=== PATIENT | female | born 1980 | race Caucasian/White ===

== ENCOUNTER 2016-11-18 20:25 | Emergency (ER) | payer OTHER ==
[2016-11-18] MEDS ORDERED: IMODIUM 2 MG PO ONE (21:05)
[2016-11-18] MEDS ORDERED: Zofran 4 MG/2 ML VIAL IV ONE (21:05)
[2016-11-18] MEDS ORDERED: Sodium Chloride 0.9% 1000 ML 1,000 ML IV STA (21:05)
--- NOTE | 2016-11-18 21:09 | ERPHSYRPT ---
- History of Present Illness Time Seen by Provider: 11/18/16 21:06 Historian: patient Exam Limitations: no limitations Patient Subjective Stated Complaint: PT STATES SHE STARTED HAVING VOMITING AND DIARRHEA 3 DAYS AGO. STATES DIARRHEA HAS IMPROVED TODAY BUT CONTINUES TO HAVE NAUSEA AND VOMITING. Triage Nursing Assessment: PT ALERT AND ORIENTED. ANSWERS QUESTIONS APPROP. PT AMBULATORY WITH STEADY GAIT NOTED. RESPIRATIONS NONLABORED WITH LUNGS CTA. ABD OBESE AND NONTENDER TO TOUCH. BOWEL SOUNDS DISTANT. Physician History: 36 y/o obese female comes to the ER with complaints of abdominal cramping, nausea, vomiting and diarrhea for the past 3 days. Pt mentions that the diarrhea has let up but now the vomiting is persistent, having emesis after trying to eat. Pt is unable to keep anything down. Pt denies any fever, chills, bloody stools, urinary symptoms or constipation. Timing/Duration: day(s) Activities at Onset: none Quality: cramping Abdominal Pain Onset Location: generalized abdomen Pain Radiation: no radiation Severity of Pain-Max: mild Severity of Pain-Current: none Modifying Factors: Improves With: nothing Associated Symptoms: denies symptoms Previous symptoms: no prior history Allergies/Adverse Reactions: loratadine [From Claritin] Allergy (Verified 11/18/16 20:40) Home Medications: Control 1 tab PO DAILY 11/18/16 [History] Desvenlafaxine Succinate [Pristiq ER] 50 mg PO DAILY 11/18/16 [History] Fluticasone/Salmeterol [Advair 250-50 Diskus] 1 puff IH BID 11/18/16 [History] Levothyroxine Sodium [Synthroid] 300 mcg PO DAILY 11/18/16 [History] Losartan Potassium 50 mg [Cozaar 50 MG] 50 mg PO DAILY 11/18/16 [History] Montelukast Sodium [Singulair] 10 mg PO DAILY 11/18/16 [History] Hx Tetanus, Diphtheria Vaccination/Date Given: Yes Hx Influenza Vaccination/Date Given: No Hx Pneumococcal Vaccination/Date Given: No Immunizations Up to Date: Yes - Review of Systems Constitutional: No Fever, No Chills Eyes: No Symptoms Ears, Nose, & Throat: No Symptoms Respiratory: No Cough, No Dyspnea Cardiac: No Chest Pain, No Edema, No Syncope Abdominal/Gastrointestinal: Abdominal Pain, Nausea, Vomiting, Diarrhea Genitourinary Symptoms: No Dysuria Musculoskeletal: No Back Pain, No Neck Pain Skin: No Rash Neurological: No Dizziness, No Focal Weakness, No Sensory Changes Psychological: No Symptoms Endocrine: No Symptoms All Other Systems: Reviewed and Negative - Past Medical History Pertinent Past Medical History: Yes Neurological History: No Pertinent History ENT History: No Pertinent History Cardiac History: No Pertinent History Respiratory History: Asthma Endocrine Medical History: No Pertinent History, Hypothyroidism Musculoskeletal History: No Pertinent History GI Medical History: No Pertinent History History: No Pertinent History Psycho-Social History: No Pertinent History - Past Surgical History Past Surgical History: Yes Neuro Surgical History: No Pertinent History Cardiac: No Pertinent History Respiratory: No Pertinent History Gastrointestinal: No Pertinent History Genitourinary: No Pertinent History Musculoskeletal: No Pertinent History Female Surgical History: Section Other Surgical History: TONSILLS/ADNOIDS - Social History Smoking Status: Never smoker Exposure to second hand smoke: No Drug Use: none Patient Lives Alone: No - Female History Hx Last Menstrual Period: 1 WEEK Hx Now: No - Nursing Vital Signs Nursing Vital Signs: Initial Vital Signs Temperature 97.6 F Temperature Source Oral Pulse Rate 120 Respiratory Rate 18 Blood Pressure [Left Arm] 161/105 Pain Intensity 2 - Physical Exam General Appearance: no apparent distress, alert Eye Exam: PERRL/EOMI, eyes nml inspection Ears, Nose, Throat Exam: normal ENT inspection, pharynx normal, moist mucous membranes Neck Exam: normal inspection, non-tender, supple, full range of motion Respiratory Exam: normal breath sounds, lungs clear, No respiratory distress Cardiovascular Exam: regular rate/rhythm, normal heart sounds Gastrointestinal/Abdomen Exam: soft, normal bowel sounds, No tenderness, No mass Back Exam: normal inspection, normal range of motion, No CVA tenderness, No vertebral tenderness Extremity Exam: normal inspection, normal range of motion, pelvis stable Neurologic Exam: alert, oriented x 3, cooperative, normal mood/affect, nml cerebellar function, sensation nml, No motor deficits Skin Exam: normal color, warm, dry SpO2: 97 Oxygen Delivery: Room Air Ordered Tests: Active Orders 24 hr Category Date Time Status IV Insertion STAT Care 11/18/16 21:05 Active AMYLASE Stat Lab 11/18/16 20:45 Completed CBC W DIFF Stat Lab 11/18/16 20:45 Completed CMP Stat Lab 11/18/16 20:45 Completed LIPASE Stat Lab 11/18/16 20:45 Completed Medication Summary Generic Name Dose Route Start Last Admin Trade Name Bruno PRN Reason Stop Dose Admin Sodium Chloride 1,000 mls @ 999 mls/hr 11/18/16 21:05 11/18/16 21:16 Sodium Chloride 0.9% 1000 Ml IV 11/18/16 22:05 999 mls/hr .Q1H1M STA Administration Discontinued Medications Generic Name Dose Route Start Last Admin Trade Name Bruno PRN Reason Stop Dose Admin Sodium Chloride Confirm 11/18/16 21:14 Sodium Chloride 0.9% 1000 Ml Administered 11/18/16 21:15 Dose 1,000 mls @ ud .ROUTE .STK-MED ONE Loperamide HCl 4 mg 11/18/16 21:05 11/18/16 21:47 Imodium 2 Mg PO 11/18/16 21:06 4 mg STAT ONE Administration Ondansetron HCl 4 mg 11/18/16 21:05 11/18/16 21:17 Zofran 4 Mg/2 Ml Vial IV 11/18/16 21:06 4 mg STAT ONE Administration Ondansetron HCl Confirm 11/18/16 21:14 Zofran 4 Mg/2 Ml Vial Administered 11/18/16 21:15 Dose 4 mg .ROUTE .STK-MED ONE Lab/Rad Data: Laboratory Result Diagrams 11/18/16 20:45 11/18/16 20:45 Laboratory Results 11/18/16 11/18/16 Range/Units 20:45 20:45 WBC 7.8 (4.0-10.5) K/mm3 RBC 5.10 (4.1-5.4) M/mm3 Hgb 14.5 (12.0-16.0) gm/dl Hct 44.4 (35-47) % MCV 87.1 (78-100) fl MCH 28.4 (26-32) pg MCHC 32.7 (32-36) g/dl RDW 14.0 (11.5-14.0) % Plt Count 296 (150-450) K/mm3 MPV 10.1 H (6-9.5) fl Gran % 68.4 H (36.0-66.0) % Lymphocytes % 19.1 L (24.0-44.0) % Monocytes % 12.1 H (0.0-12.0) % Eosinophils % 0.3 (0.00-5.0) % Basophils % 0.1 (0.0-0.4) % Basophils # 0.01 (0-0.4) Sodium 141 (136-145) mEq/L Potassium 3.8 (3.5-5.1) mEq/L Chloride 103 (98-107) mEq/L Carbon Dioxide 20.8 L (21-32) mEq/L Anion Gap 20.9 H (5-15) MEQ/L BUN 15 (9-20) mg/dL Creatinine 0.97 (0.55-1.30) mg/dl Estimated GFR > 60 ML/MIN Glucose 151 H (70-110) MG/DL Calcium 8.7 (8.5-10.1) mg/dL Total Bilirubin 0.7 (0.2-1.0) mg/dL AST 93 H (15-37) U/L ALT 57 (12-78) U/L Alkaline Phosphatase 79 (46-116) U/L Serum Total Protein 7.7 (6.4-8.2) gm/dL Albumin 3.5 (3.4-5.0) g/dL Amylase 39 (25-115) U/L Lipase 96 (73-393) U/L - Progress Progress: improved Progress Note: 11/18/16 21:57 Pt feels better after receiving IVF, zofran and imodium. The labs are within normal limits. Pt will be d/c home with a diagnosis of viral syndrome and scripts for zofran and imodium - Departure Time of Disposition: 21:59 Departure Disposition: Home Clinical Impression: Viral syndrome Condition: Stable Critical Care Time: No Referrals: SETH CAMPA MD [Primary Care Provider] - Instructions: Viral Syndrome Additional Instructions: Return to the ER if you should have worsening abdominal pain, nausea, vomiting, diarrhea, bloody stools, fever or chills. Prescriptions: Loperamide HCl 2 mg [Imodium 2 mg] 2 mg PO Q4H PRN PRN #20 capsule PRN Reason: Diarrhea Ondansetron [Zofran Odt] 4 mg PO Q6H PRN PRN #10 tab.rapdis PRN Reason: Nausea/Vomiting
[2016-11-18 21:12] LABS: BASOPHIL % 0.1 % (0.0-0.4); Eosinophil % 0.3 % (0.00-5.0); Granulocytes % 68.4 % (36.0-66.0); Lymphocytes % 19.1 % (24.0-44.0); Mean Cell Volume 87.1 fl (78-100); Mean Corpuscular Hemoglobin 28.4 pg (26-32); Mean Platelet Volume 10.1 fl (6-9.5); Monocytes % 12.1 % (0.0-12.0); Platelet Count 296 K/mm3 (150-450); White Blood Count 7.8 K/mm3 (4.0-10.5)
[2016-11-18] MEDS ORDERED: Sodium Chloride 0.9% 1000 ML 1,000 ML ONE (21:14)
[2016-11-18] MEDS ORDERED: Zofran 4 MG/2 ML VIAL ONE (21:14)
[2016-11-18 21:21] LABS: ALBUMIN 3.5 g/dL (3.4-5.0); ALKALINE PHOSPHATASE 79 U/L (46-116); ANION GAP 20.9 MEQ/L (5-15); BILIRUBIN,TOTAL 0.7 mg/dL (0.2-1.0); BLOOD UREA NITROGEN 15 mg/dL (9-20); CHLORIDE 103 mEq/L (98-107); Carbon Dioxide 20.8 mEq/L (21-32); Glucose 151 MG/DL (70-110); LIPASE 96 U/L (73-393); Potassium 3.8 mEq/L (3.5-5.1); SGOT/AST 93 U/L (15-37); SGPT/ALT 57 U/L (12-78); SODIUM 141 mEq/L (136-145); Total Protein 7.7 gm/dL (6.4-8.2)
[2016-11-18 22:37] VITALS: BP 130/70; PULSE 73; O2SAT 100
== END 2016-11-18 22:37 | disposition home or self-care (01) ==
LOC: ED 20:25
DX: B34.9 Viral infection, unspecified (principal); R11.2 Nausea with vomiting, unspecified; R19.7 Diarrhea, unspecified; R10.84 Generalized abdominal pain
CPT/HCPCS: 36000; 36415; 80053; 82150; 83690; 85025; 96360; 96375; 99283; J2405

== ENCOUNTER 2021-11-28 20:04 | Emergency (ER) | payer OTHER ==
--- NOTE | 2021-11-28 21:18 | ERPHSYRPT ---
- History of Present Illness Time Seen by Provider: 11/28/21 21:20 Source: patient Exam Limitations: no limitations Patient Subjective Stated Complaint: Fell on ice. C/O pain and injury to left dorado, right wrist, neck, and upper and middle back. Triage Nursing Assessment: Patient alert and oriented x 3. Appears to have full ROM to extremities. Able to ambulate. No edema or bruising seen. Tiny abrasion to left knee. Physician History: pt fell striking head and neck and has pain there and into t spine with point tenderness all. fundi beinign and visual haile and neuro all intact. no LOC. GCS 15 discussed risk and benefit of CT and pt wishes to proceed. no blood thinners and [place] ules applied but not indicating but mechanism with increased force of weight and pt request are factors that apply here. pain r ight wrist and left knee NV intact distally. no neuro deficits. Occurred: just prior to arrival Reason for Fall: slipped Injuries/Pain Location: head, neck, upper extremity, lower extremity Loss of Consciousness: no loss of consciousness Severity of Pain-Max: moderate Severity of Pain-Current: moderate Associated Symptoms (Fall): denies symptoms Allergies/Adverse Reactions: loratadine [From Claritin] Allergy (Verified 11/28/21 20:38) Home Medications: Control 1 tab PO DAILY 11/18/16 [History] Desvenlafaxine Succinate [Pristiq ER] 100 mg PO DAILY 11/18/16 [History] Levothyroxine Sodium [Synthroid] 300 mcg PO DAILY 11/18/16 [History] Losartan Potassium 50 mg [Cozaar 50 MG] 50 mg PO DAILY 11/18/16 [History] Montelukast Sodium [Singulair] 10 mg PO DAILY 11/18/16 [History] Fexofenadine HCl [Augustina Allergy] 180 mg PO DAILY 11/28/21 [History] Omeprazole 40 mg PO QHS 11/28/21 [History] Semaglutide [Ozempic] 1 mg SQ WEEKLY 11/28/21 [History] glipiZIDE [Glipizide] 5 mg PO QHS 11/28/21 [History] Hx Tetanus, Diphtheria Vaccination/Date Given: No Hx Influenza Vaccination/Date Given: No Hx Pneumococcal Vaccination/Date Given: No Immunizations Up to Date: Yes Travel Risk - International Travel Have you traveled outside of the country in past 3 weeks: No - Coronavirus Screening Are you exhibiting any of the following symptoms?: No Close contact with a COVID-19 positive Pt in past 14-21 Days: No - Vaccine Status Have you recieved a Covid-19 vaccination: No - Review of Systems Constitutional: No Fever, No Chills Eyes: No Symptoms Ears, Nose, & Throat: No Symptoms Respiratory: No Cough, No Dyspnea Cardiac: No Chest Pain, No Edema, No Syncope Abdominal/Gastrointestinal: No Abdominal Pain, No Nausea, No Vomiting, No Diarrhea Genitourinary Symptoms: No Dysuria Musculoskeletal: Back Pain, Neck Pain, Fall, Injury, Joint Pain, Joint Swelling Skin: No Symptoms, No Rash Neurological: No Dizziness, No Focal Weakness, No Sensory Changes Psychological: No Symptoms Endocrine: No Symptoms Hematologic/Lymphatic: No Symptoms Immunological/Allergic: No Symptoms All Other Systems: Reviewed and Negative - Past Medical History Pertinent Past Medical History: Yes Neurological History: No Pertinent History ENT History: No Pertinent History Cardiac History: Hypertension Respiratory History: Asthma Endocrine Medical History: Diabetes Type II, Hypothyroidism Musculoskeletal History: No Pertinent History GI Medical History: GERD History: No Pertinent History Psycho-Social History: Depression - Past Surgical History Past Surgical History: Yes Neuro Surgical History: No Pertinent History Cardiac: No Pertinent History Respiratory: No Pertinent History Gastrointestinal: No Pertinent History Genitourinary: No Pertinent History Musculoskeletal: No Pertinent History Female Surgical History: Section Other Surgical History: . - Social History Smoking Status: Never smoker Exposure to second hand smoke: No Drug Use: none Patient Lives Alone: No - Female History Hx Last Menstrual Period: 11/12/21 Hx Now: No - Nursing Vital Signs Nursing Vital Signs: Initial Vital Signs Temperature 97.1 F 11/28/21 20:43 Pulse Rate 88 11/28/21 20:43 Respiratory Rate 18 11/28/21 20:43 Blood Pressure 169/121 11/28/21 20:43 O2 Sat by Pulse Oximetry 98 11/28/21 20:43 Pain Scale Pain Intensity 7 - Mahamed Coma Score Best Eye Response (Gobler): (4) open spontaneously Best Verbal Response (Gobler): (5) oriented Best Motor Response (Gobler): (6) obeys commands Gob[place] Total: 15 - Physical Exam General Appearance: no apparent distress, alert Head Injury: no evidence of injury Eye Exam: PERRL/EOMI ENT Exam: airway nml Neck Exam: trachea midline, normal inspection, limited range of motion, pain on movement of neck, tenderness Respiratory/Chest Exam: normal breath sounds, No chest tenderness, No respiratory distress Cardiovascular Exam: normal heart sounds, regular rate/rhythm Gastrointestinal Exam: soft, No tenderness, No distention, No guarding, No ecchymosis Rectal Exam: deferred Back Exam: normal inspection, No vertebral tenderness Extremity Exam: normal inspection, normal range of motion, pelvis stable, joint swelling, limited range of motion, No deformities Peripheral Pulses: carotid (R): 2+, carotid (L): 2+, femoral (R): 2+, femoral (L): 2+, dorsalis-pedis (R): 2+, dorsalis-pedis (L): 2+ Neurologic Exam: alert, oriented x 3, cooperative, sensation nml, No motor deficits Skin Exam: normal color, warm, dry SpO2 Interpretation: normal SpO2: 98 O2 Delivery: Room Air Procedures - Splinting Time of Procedure: 23:57 Location of Splint: Left, Knee Type of Splint: Other (immobilizer) Splint Applied By: ED Nurse Pre-Proc Neuro Vasc Exam: normal Post-Proc Neuro Vasc Exam: neurovascular intact, unchanged from pre-exam - Course Nursing assessment & vital signs reviewed: Yes - Radiology Exams Left Knee X-ray Interpretation: Reviewed by me, Other (possible nondisplaced fx proximal tib) Right Wrist X-ray Interpretation: Reviewed by me, Other (no obvious fx) - CT Exams Head CT Interpretation: No/Intracranial Hemorrhag Cervical Spine CT Interpretation: Tele-radiologist Report, No Fracture, Other (lipoma) Thoracic Spine CT Interpretation: Tele-radiologist Report, DJD, No Fracture Ordered Tests: Active Orders 24 hr Category Date Time Status CERVICAL SPINE WO CONTRAST [CT] Stat Exams 11/28/21 21:11 Taken HEAD WITHOUT CONTRAST [CT] Stat Exams 11/28/21 21:11 Taken KNEE (3 VIEWS) Stat Exams 11/28/21 21:13 Taken THORACIC SPINE W/O CONTRAST [CT] Stat Exams 11/28/21 21:12 Taken WRIST (MIN 3 VIEWS) Stat Exams 11/28/21 21:14 Taken - Progress Progress: improved, re-examined Counseled pt/family regarding: diagnosis, need for follow-up, rad results - Departure Departure Disposition: Home Clinical Impression: Concussion, DDD T spine, Left knee tibial plateau Fx, Right wrist sprain, right wrist occult fx/ligament injury Condition: Good Critical Care Time: No Referrals: SETH CAMPA MD [Primary Care Provider] - Follow up/PCP as directed Instructions: Preventing Falls, Tibial Plateau Fracture (DC), Internal Derangement of the Knee (DC), Wrist Sprain (DC), Wrist Fracture (DC), Degenerative Disc Disease (DC), Concussion, Adult (DC), Closed Head Injury (DC) Additional Instructions: Followup with Orthopedic to recheck left knee and wrist, and for further treatment. Follow head injury precautions as the injury may still develop after a normal CT scan from delayed injury effects. Return meantime if any concerns. Follow-up with your for blood pressure.
[2021-11-29] MEDS ORDERED: Adacel Vial IM ONE ×2 (00:01→00:03)
[2021-11-29 00:14] VITALS: BP 144/98; PULSE 87; O2SAT 96
--- NOTE | 2021-11-29 09:15 | XRAY ---
Indication: Pain following fall. Comparison: None 3 view left knee demonstrates minimal medial joint space narrowing/spurring. No other bony, articular, or soft tissue abnormalities.
--- NOTE | 2021-11-29 09:15 | XRAY ---
Indication: Headache following fall. Multiple contiguous axial images obtained through the head without contrast. Comparison: None Normal appearing brain parenchyma, ventricles, and bony calvarium. Visualized paranasal sinuses and mastoid air cells are clear. Impression: Normal CT head without contrast exam. Comment: Preliminary interpretation made by [facility]. No critical discrepancy.
--- NOTE | 2021-11-29 09:15 | XRAY ---
Indication: Pain following fall.. Comparison: None 3 view right wrist demonstrate mild radiocarpal joint space narrowing. No other bony, articular, or soft tissue abnormalities.
--- NOTE | 2021-11-29 09:17 | XRAY ---
Indication: Pain following fall. Multiple contiguous axial images obtained through the cervical spine. Sagittal and coronal reformatted images obtained. Comparison: None Axial images negative for acute fracture, suspicious bony lesions, or spinal canal stenosis. Minimal C5-C7 degenerative endplate spurring. Sagittal and coronal reformatted images demonstrates lordotic reversal, positional versus paraspinal spasm. Disc spaces maintained. No acute compression fracture, subluxation, or jumped facet. Normal appearing craniocervical junction. Visualized noncontrasted soft tissues including lung apices are unremarkable. Impression: 1. Cervical lordotic reversal and C5-C7 degenerative changes. 2. Remaining CT cervical spine is negative. Comment: Preliminary interpretation made by [facility]. No critical discrepancy.
--- NOTE | 2021-11-29 09:19 | XRAY ---
Indication: Pain following fall. Multiple contiguous axial images obtained through the thoracic spine. Sagittal and coronal reformatted images obtained. Comparison: None Axial images negative for acute fracture, suspicious bony lesions, or spinal canal stenosis. Minimal T5-T6 degenerative vacuum disc phenomena and minimal T3-T8 anterior endplate spurring. Sagittal and coronal reformatted images demonstrates normal thoracic alignment. Vertebral body heights/disc spaces maintained. No acute compression fracture or subluxation. Visualized noncontrasted soft tissues unremarkable. Impression: 1. Minimal multilevel degenerative changes. 2. Remaining CT thoracic spine is negative. Comment: Preliminary interpretation made by [facility]. No critical discrepancy.
== END 2021-11-29 00:20 | disposition home or self-care (01) ==
LOC: ED 20:04
DX: S06.0X0A Concussion without loss of consciousness, initial encounter (principal); S82.142A Displaced bicondylar fracture of left tibia, initial encounter for closed fracture; S63.501A Unspecified sprain of right wrist, initial encounter; W00.0XXA Fall on same level due to ice and snow, initial encounter; I10 Essential (primary) hypertension; E11.9 Type 2 diabetes mellitus without complications; Z79.84 Long term (current) use of oral hypoglycemic drugs; Z79.899 Other long term (current) drug therapy; M51.34 Other intervertebral disc degeneration, thoracic region
CPT/HCPCS: 70450; 72125; 72128; 73110; 73562; 90471; 90715; 99284; L1830; L3908

== ENCOUNTER 2022-08-06 22:15 | Emergency (ER) | payer OTHER ==
[2022-08-06 22:28] VITALS: BP 137/82
[2022-08-06] MEDS ORDERED: DUONEB 0.5-3 MG/3 ml Neb IH ONE ×2 (22:32→22:37)
[2022-08-06] MEDS ORDERED: solu-MEDROL 125 MG, Sterile H2O 10 ml 2 ML IM ONE ×2 (22:32)
[2022-08-06] MEDS ORDERED: solu-MEDROL ONE (22:35)
[2022-08-06] MEDS ORDERED: Sterile H2O 10 ml IJ ONE (22:35)
--- NOTE | 2022-08-06 22:39 | ERPHSYRPT ---
- History of Present Illness Time Seen by Provider: 08/06/22 22:18 Source: patient Exam Limitations: no limitations Patient Subjective Stated Complaint: pt states she has been sick for four four days cough and fever, chest songestion, has been using inhaler more, states she is worried about ppneumonia Triage Nursing Assessment: pt is alert and oriented, states she has no pain at this time but is congected and has a cough Physician History: 41 years old morbidly obese female with history of asthma presented in the ER with chief complaint of mild to moderate dry cough with congestion. Patient reported it started as a URI symptoms and gradually having increasing cough and wheezing. Mild difficulty breathing. Using inhaler which does help. Son has similar symptoms. Subjective feeling of fever and chills. Timing/Duration: day(s) (4), gradual onset, worse Cough Quality/Degree: moderate, dry cough Possible Cause: unknown cause Modifying Factors: Improves With: albuterol inhaler. Worsens With: coughing Associated Symptoms: fever, chills, chest pain/soreness, cough, nasal congestion , wheezing Allergies/Adverse Reactions: loratadine [From Claritin] Allergy (Verified 11/28/21 20:38) sumatriptan [From Imitrex] Allergy (Verified 08/06/22 22:28) Home Medications: Control 1 tab PO DAILY 11/18/16 [History] Desvenlafaxine Succinate [Pristiq ER] 100 mg PO DAILY 11/18/16 [History] Levothyroxine Sodium [Synthroid] 300 mcg PO DAILY 11/18/16 [History] Losartan Potassium 50 mg [Cozaar 50 MG] 50 mg PO DAILY 11/18/16 [History] Montelukast Sodium [Singulair] 10 mg PO DAILY 11/18/16 [History] Fexofenadine HCl [Augustina Allergy] 180 mg PO DAILY 11/28/21 [History] Omeprazole 40 mg PO QHS 11/28/21 [History] Semaglutide [Ozempic] 1 mg SQ WEEKLY 11/28/21 [History] glipiZIDE [Glipizide] 5 mg PO QHS 11/28/21 [History] Hx Tetanus, Diphtheria Vaccination/Date Given: No Hx Influenza Vaccination/Date Given: No Hx Pneumococcal Vaccination/Date Given: No Travel Risk - International Travel Have you traveled outside of the country in past 3 weeks: No - Coronavirus Screening Are you exhibiting any of the following symptoms?: Yes Symptoms: Fever, Cough: New Onset Close contact with a COVID-19 positive Pt in past 14-21 Days: No - Vaccine Status Have you recieved a Covid-19 vaccination: No - Review of Systems Constitutional: Fever, Chills Eyes: No Symptoms Ears, Nose, & Throat: Nose Congestion Respiratory: Cough, Wheezing Cardiac: No Symptoms Abdominal/Gastrointestinal: No Symptoms Genitourinary Symptoms: No Symptoms Musculoskeletal: No Symptoms Neurological: No Symptoms Psychological: No Symptoms Hematologic/Lymphatic: No Symptoms Immunological/Allergic: No Symptoms - Past Medical History Pertinent Past Medical History: Yes Neurological History: No Pertinent History ENT History: No Pertinent History Cardiac History: Hypertension Respiratory History: Asthma Endocrine Medical History: Diabetes Type II, Hypothyroidism Musculoskeletal History: No Pertinent History GI Medical History: GERD History: No Pertinent History Psycho-Social History: Depression - Past Surgical History Past Surgical History: Yes Neuro Surgical History: No Pertinent History Cardiac: No Pertinent History Respiratory: No Pertinent History Gastrointestinal: No Pertinent History Genitourinary: No Pertinent History Musculoskeletal: No Pertinent History Female Surgical History: Section Other Surgical History: . - Social History Smoking Status: Never smoker Exposure to second hand smoke: No Drug Use: none Patient Lives Alone: No - Female History Hx Last Menstrual Period: 3 weeks ago Hx Now: No - Nursing Vital Signs Nursing Vital Signs: Initial Vital Signs Temperature 99.0 F 08/06/22 22:17 Pulse Rate 105 H 08/06/22 22:17 Respiratory Rate 18 08/06/22 22:17 Blood Pressure 137/82 08/06/22 22:17 O2 Sat by Pulse Oximetry 97 08/06/22 22:17 Pain Scale Pain Intensity 0 - Physical Exam General Appearance: no apparent distress, alert Eye Exam: PERRL/EOMI Ears, Nose, Throat Exam: moist mucous membranes, pharyngeal erythema Neck Exam: normal inspection, non-tender, supple, full range of motion Respiratory Exam: wheezing, No respiratory distress Cardiovascular Exam: regular rate/rhythm, normal heart sounds Back Exam: normal inspection Extremity Exam: normal inspection, normal range of motion Neurologic Exam: alert, oriented x 3, cooperative Skin Exam: normal color SpO2 Interpretation: normal SpO2: 97 O2 Delivery: Room Air Ordered Tests: Active Orders 24 hr Category Date Time Status CHEST 1 VIEW (PORTABLE) Stat Exams 08/06/22 22:32 Taken Respiratory Therapy Assessment DAILY RT 08/06/22 22:40 Active Medication Summary Generic Name Dose Route Start Last Admin Trade Name Alfredq PRN Reason Stop Dose Admin Oseltamivir Phosphate 75 mg 08/06/22 23:36 Oseltamivir 75 Mg Cap PO 08/06/22 23:37 STAT ONE Discontinued Medications Generic Name Dose Route Start Last Admin Trade Name Freq PRN Reason Stop Dose Admin Albuterol/Ipratropium 3 ml 08/06/22 22:32 08/06/22 22:48 Ipratropium/Albuterol Sulfate 3 Ml Ampul.Neb IH 08/06/22 22:33 3 ml STAT ONE Administration Albuterol/Ipratropium Confirm 08/06/22 22:37 Ipratropium/Albuterol Sulfate 3 Ml Ampul.Neb Administered 08/06/22 22:38 Dose 3 ml IH .STK-MED ONE Methylprednisolone Sodium 0 mg 08/06/22 22:32 08/06/22 22:36 Succinate 125 mg/ Sterile IM 08/06/22 22:33 125 mg Water 2 ml STAT ONE Administration Methylprednisolone Sodium Succinate Confirm 08/06/22 22:35 Methylprednis Sod Succ 125 Mg/2 Ml Vial Administered 08/06/22 22:36 Dose 125 mg .ROUTE .STK-MED ONE Sterile Water Confirm 08/06/22 22:35 Water For Injection,Sterile 10 Ml Vial Administered 08/06/22 22:36 Dose 10 ml IJ .STK-MED ONE Lab/Rad Data: Laboratory Results 08/06/22 Range/Units 22:39 Influenza Type A Ag POSITIVE (NEGATIVE) Influenza Type B Ag NEGATIVE (NEGATIVE) RSV (PCR) NEGATIVE (Negative) SARS-CoV-2 (PCR) NEGATIVE (NEGATIVE) - Progress Progress: improved Air Movement: good Progress Note: 08/06/22 23:38 She is given Solu-Medrol and DuoNeb, on reevaluation wheezing is improved. She does have influenza A, started on Tamiflu. X-rays negative for any acute pneumonic infiltrative process reviewed by me, official report is pending. Recommended continue with inhaler/nebulizer and outpatient follow-up. Discussed signs symptoms of worsening needing return to ER which she seems understanding. Blood Culture(s) Obtained: No Antibiotics given: No Counseled pt/family regarding: lab results, diagnosis, need for follow-up, rad results - Departure Departure Disposition: Home Clinical Impression: Influenza A, Asthma Condition: Stable Critical Care Time: No Referrals: SETH CAMPA MD [Primary Care Provider] - Follow up/PCP as directed (In 2 days for reevaluation) Instructions: Flu, Adult (DC) Additional Instructions: Continue with inhaler. Follow-up with primary care for reevaluation. Take Tylenol/ibuprofen as needed. Return to ER for worsening wheezing, difficulty breathing, persistent fever chills etc. Prescriptions: Albuterol/Ipratropium 3ml Neb* [DUONEB 0.5-3 MG/3 ml Neb] 3 ml IH Q6H PRN 15 Days #60 amp PRN Reason: Shortness Of Breath Oseltamivir 75 mg [Tamiflu 75MG Capsule] 75 mg PO BID #9 cap
[2022-08-06 23:18] VITALS: PULSE 98; O2SAT 97
[2022-08-06 23:19] LABS: INFLUENZA B NEGATIVE (NEGATIVE); RESPIRATORY SYNCTIAL VIRUS NEGATIVE (Negative); SARS-CoV-2 Xpert Express NEGATIVE (NEGATIVE)
[2022-08-06 23:27] LABS: INFLUENZA A POSITIVE (NEGATIVE)
[2022-08-06] MEDS ORDERED: Tamiflu 75MG Capsule PO ONE ×2 (23:36→23:43)
--- NOTE | 2022-08-07 07:13 | XRAY ---
Indication: Cough. Comparison: March 11, 2022 Portable chest again demonstrates normal heart, lungs, and bony thorax.
== END 2022-08-06 23:54 | disposition home or self-care (01) ==
LOC: ED 22:15
DX: J10.1 Influenza due to other identified influenza virus with other respiratory manifestations (principal); J45.909 Unspecified asthma, uncomplicated; R07.9 Chest pain, unspecified; R50.9 Fever, unspecified; I10 Essential (primary) hypertension; E11.9 Type 2 diabetes mellitus without complications; Z79.899 Other long term (current) drug therapy; Z28.310 Unvaccinated for COVID-19
CPT/HCPCS: 0241U; 71045; 94640; 96372; 99283; J2930; A9270-GY